=== PATIENT | female | born 1945 | race African-American/Black ===

== ENCOUNTER 2018-02-04 18:50 | Inpatient (IN) | payer MEDICARE ==
[~2018-02-04] VITALS: Ht 162.6 cm; Wt 56.7 kg
[~2018-02-04 18:50] MED LIST: AMLO2.5T45 PO; ASPI-1159 PO; CLOP75TA15 PO; GLIM1TAB2 PO; METF500T4 PO; PRALUENT PO
[2018-02-04] MEDS ORDERED: GUAIFENESIN 200MG/10ML SUGAR FREE UDC PO PRN (19:45)
[2018-02-04] MEDS ORDERED: CLONIDINE 0.1MG TABLET PO PRN (19:45)
[2018-02-04] MEDS ORDERED: DEXTROSE 50% WATER 50ML SYRINGE IV PRN (19:45)
[2018-02-04] MEDS ORDERED: ONDANSETRON HCL 4MG/2ML VIAL IV PRN (19:45)
[2018-02-04] MEDS ORDERED: MORPHINE SULFATE 4 MG/ML CPJ (NOT FOR IM USE) IV PRN ×4 (19:45→20:45)
[2018-02-04] MEDS ORDERED: IPRATROPIUM/ALBUTEROL 0.5-3(2.5)MG/3ML NEB HHN PRN (19:45)
[2018-02-04 20:00] VITALS: BP 112/48
[2018-02-04] MEDS: INSULIN LISPRO 100 UNITS/ML SUBCUT SCH (21:00)
[2018-02-04] MEDS: AMLODIPINE 2.5MG TABLET PO SCH (21:00)
[2018-02-04] MEDS: METOPROLOL TARTRATE 25MG TABLET PO SCH (21:00)
[2018-02-04] MEDS: DOCUSATE SODIUM 100MG CAPSULE PO PRN (21:02)
[2018-02-04] MEDS: BLOOD SUGAR DIAGNOSTIC STRIP TEST SCH (21:02)
[2018-02-04] MEDS ORDERED: LOSA25TA3 PO ×2 (21:56→21:59)
[2018-02-05] MEDS: HYDROCODONE/APAP 7.5/325MG 1 TAB TABLET PO PRN ×3 (03:24→22:27)
[2018-02-05] MEDS: GLIMEPIRIDE 1MG TABLET PO SCH (06:27)
[2018-02-05] MEDS: BLOOD SUGAR DIAGNOSTIC STRIP TEST SCH ×4 (06:27→20:52)
[2018-02-05] MEDS: INSULIN LISPRO 100 UNITS/ML SUBCUT SCH ×4 (06:27→20:52)
[2018-02-05 07:48] LABS: BASOPHILS % 0.6 % (0.0-2.0); EOSINOPHILS % 2.1 % (0.0-5.0); HEMATOCRIT. 27.5 % (36.0-48.0); HEMOGLOBIN. 9.2 g/dL (12.0-16.0); LYMPHOCYTES % 18.5 % (20.0-50.0); MEAN CORPUSCULAR HEMOGLOBIN 29.9 pg (28.0-32.0); MEAN CORPUSCULAR VOLUME 89.6 fL (81.0-99.0); MEAN PLATELET VOLUME 8.3 fl (7.4-10.4); MONOCYTES % 10.6 % (2.0-8.0); NEUTROPHILS % 68.2 % (40.0-76.0); PLATELET 218 x1000/uL (130-400); RED BLOOD CELL COUNT 3.07 mill/uL (4.2-5.4); RED CELL DISTRIBUTION WIDTH 13.4 % (11.6-14.6)
[2018-02-05 08:00] VITALS: BP 126/50
[2018-02-05] MEDS: METFORMIN HCL 500MG TABLET PO SCH ×2 (08:07→17:00)
[2018-02-05] MEDS: ASPIRIN 81MG EC TABLET PO SCH (08:07)
[2018-02-05] MEDS: POLYVINYL ALCOHOL OPHTH DROPS 15ML BOTHEYE SCH ×3 (08:08→18:15)
[2018-02-05] MEDS: AMLODIPINE 2.5MG TABLET PO SCH ×2 (08:10→20:55)
[2018-02-05] MEDS: METOPROLOL TARTRATE 25MG TABLET PO SCH (08:18)
[2018-02-05 08:19] LABS: CHLORIDE 102 mEq/L (98-107)
[2018-02-05] MEDS: LOSARTAN POTASSIUM 25 MG TABLET PO SCH (11:00)
[2018-02-05] MEDS ORDERED: LOSARTAN POTASSIUM 25 MG TABLET PO PRN (11:00)
[2018-02-05] MEDS: LEVOFLOXACIN 250MG TABLET PO SCH (12:31)
[2018-02-05] MEDS: DOCUSATE SODIUM 100MG CAPSULE PO PRN (12:31)
[2018-02-05] MEDS: LACTULOSE 20G/30ML UDC PO PRN (18:56)
[2018-02-05] MEDS ORDERED: NON FORMULARY PATIENT HOME MED EA XX SCH (19:00)
[2018-02-05 20:00] VITALS: BP 136/44
[2018-02-05] MEDS: CLOPIDOGREL 75MG TABLET PO SCH (20:54)
[2018-02-05] MEDS ORDERED: POLYVINYL ALCOHOL OPHTH DROPS 15ML OP SCH (22:00)
[2018-02-05] MEDS: SYSTANE LUBRICANT EYE DROPS OP SCH (22:17)
[2018-02-06] MEDS: BLOOD SUGAR DIAGNOSTIC STRIP TEST SCH ×4 (06:13→21:00)
[2018-02-06] MEDS: SYSTANE LUBRICANT EYE DROPS OP SCH ×3 (06:14→22:24)
[2018-02-06] MEDS: GLIMEPIRIDE 1MG TABLET PO SCH (07:00)
[2018-02-06 08:00] VITALS: BP 121/61
[2018-02-06] MEDS: CLOPIDOGREL 75MG TABLET PO SCH (08:26)
[2018-02-06] MEDS: METFORMIN HCL 500MG TABLET PO SCH ×2 (08:26→17:45)
[2018-02-06] MEDS: ASPIRIN 81MG EC TABLET PO SCH (08:26)
[2018-02-06] MEDS: LOSARTAN POTASSIUM 25 MG TABLET PO SCH (08:26)
[2018-02-06] MEDS: HYDROCODONE/APAP 7.5/325MG 1 TAB TABLET PO PRN ×3 (08:27→22:56)
[2018-02-06] MEDS: INSULIN LISPRO 100 UNITS/ML SUBCUT SCH ×4 (08:32→21:00)
[2018-02-06] MEDS: AMLODIPINE 2.5MG TABLET PO SCH ×2 (08:32→21:00)
[2018-02-06] MEDS: LEVOFLOXACIN 250MG TABLET PO SCH (11:59)
[2018-02-06 20:00] VITALS: BP 129/51
[2018-02-07] MEDS: SYSTANE LUBRICANT EYE DROPS OP SCH ×3 (06:46→21:51)
[2018-02-07] MEDS: BLOOD SUGAR DIAGNOSTIC STRIP TEST SCH ×4 (06:46→21:49)
[2018-02-07 08:00] VITALS: BP 156/60
[2018-02-07] MEDS: ASPIRIN 81MG EC TABLET PO SCH (08:23)
[2018-02-07] MEDS: CLOPIDOGREL 75MG TABLET PO SCH (08:23)
[2018-02-07] MEDS: METFORMIN HCL 500MG TABLET PO SCH ×3 (08:23→17:24)
[2018-02-07] MEDS: AMLODIPINE 2.5MG TABLET PO SCH ×3 (08:23→21:53)
[2018-02-07] MEDS: LOSARTAN POTASSIUM 25 MG TABLET PO SCH (08:24)
[2018-02-07] MEDS: HYDROCODONE/APAP 7.5/325MG 1 TAB TABLET PO PRN ×2 (08:25→13:58)
[2018-02-07] MEDS: INSULIN LISPRO 100 UNITS/ML SUBCUT SCH ×4 (08:32→21:00)
[2018-02-07] MEDS: LEVOFLOXACIN 250MG TABLET PO SCH (12:01)
[2018-02-07] MEDS: GLIMEPIRIDE 1MG TABLET PO SCH (12:42)
[2018-02-07] MEDS: DOCUSATE SODIUM 100MG CAPSULE PO PRN (17:24)
[2018-02-07 20:00] VITALS: BP 141/62
[2018-02-07] MEDS ORDERED: NA PHOS,M-B/NA PHOS,DI-BA ENEMA 118ML PR PRN (20:15)
[2018-02-08] MEDS: BLOOD SUGAR DIAGNOSTIC STRIP TEST SCH ×4 (06:04→21:00)
[2018-02-08] MEDS: GLIMEPIRIDE 1MG TABLET PO SCH (06:16)
[2018-02-08] MEDS: HYDROCODONE/APAP 7.5/325MG 1 TAB TABLET PO PRN ×3 (06:17→16:34)
[2018-02-08] MEDS: INSULIN LISPRO 100 UNITS/ML SUBCUT SCH ×4 (06:22→21:00)
[2018-02-08] MEDS: SYSTANE LUBRICANT EYE DROPS OP SCH ×3 (06:23→21:03)
[2018-02-08] MEDS: METFORMIN HCL 500MG TABLET PO SCH ×3 (09:00→16:51)
[2018-02-08] MEDS: AMLODIPINE 2.5MG TABLET PO SCH ×2 (09:00→20:56)
[2018-02-08] MEDS: LOSARTAN POTASSIUM 25 MG TABLET PO SCH (09:00)
[2018-02-08] MEDS: CLOPIDOGREL 75MG TABLET PO SCH (11:01)
[2018-02-08] MEDS: ASPIRIN 81MG EC TABLET PO SCH (11:05)
[2018-02-08] MEDS: LEVOFLOXACIN 250MG TABLET PO SCH (12:11)
[2018-02-08 20:00] VITALS: BP 109/44
[2018-02-09] MEDS: HYDROCODONE/APAP 7.5/325MG 1 TAB TABLET PO PRN ×4 (03:39→23:24)
[2018-02-09 06:36] LABS: BASOPHILS % 0.8 % (0.0-2.0); EOSINOPHILS % 1.8 % (0.0-5.0); HEMATOCRIT. 26.7 % (36.0-48.0); HEMOGLOBIN. 8.9 g/dL (12.0-16.0); LYMPHOCYTES % 23.5 % (20.0-50.0); MEAN CORPUSCULAR HEMOGLOBIN 29.9 pg (28.0-32.0); MEAN CORPUSCULAR VOLUME 89.1 fL (81.0-99.0); MEAN PLATELET VOLUME 7.8 fl (7.4-10.4); MONOCYTES % 8.6 % (2.0-8.0); NEUTROPHILS % 65.3 % (40.0-76.0); PLATELET 325 x1000/uL (130-400); RED CELL DISTRIBUTION WIDTH 13.6 % (11.6-14.6)
[2018-02-09] MEDS: BLOOD SUGAR DIAGNOSTIC STRIP TEST SCH ×4 (06:36→21:00)
[2018-02-09] MEDS: SYSTANE LUBRICANT EYE DROPS OP SCH ×3 (06:36→22:54)
[2018-02-09] MEDS: INSULIN LISPRO 100 UNITS/ML SUBCUT SCH ×4 (06:39→22:48)
[2018-02-09] MEDS: GLIMEPIRIDE 1MG TABLET PO SCH (07:30)
[2018-02-09 07:39] LABS: CHLORIDE 105 mEq/L (98-107)
[2018-02-09 08:00] VITALS: BP 121/54
[2018-02-09] MEDS: CLOPIDOGREL 75MG TABLET PO SCH (08:27)
[2018-02-09] MEDS: AMLODIPINE 2.5MG TABLET PO SCH ×2 (08:28→21:55)
[2018-02-09] MEDS: ASPIRIN 81MG EC TABLET PO SCH (08:29)
[2018-02-09] MEDS: METFORMIN HCL 500MG TABLET PO SCH ×2 (08:37→17:49)
[2018-02-09] MEDS: LOSARTAN POTASSIUM 25 MG TABLET PO SCH (08:37)
[2018-02-09] MEDS: LEVOFLOXACIN 250MG TABLET PO SCH (11:40)
[2018-02-09 20:00] VITALS: BP 167/55
[2018-02-10] MEDS: SYSTANE LUBRICANT EYE DROPS OP SCH ×3 (06:14→22:33)
[2018-02-10] MEDS: BLOOD SUGAR DIAGNOSTIC STRIP TEST SCH ×4 (06:14→20:06)
[2018-02-10] MEDS: HYDROCODONE/APAP 7.5/325MG 1 TAB TABLET PO PRN ×4 (06:30→20:23)
[2018-02-10 08:00] VITALS: BP 129/88
[2018-02-10] MEDS: LOSARTAN POTASSIUM 25 MG TABLET PO SCH (08:03)
[2018-02-10] MEDS: GLIMEPIRIDE 1MG TABLET PO SCH (08:03)
[2018-02-10] MEDS: ASPIRIN 81MG EC TABLET PO SCH (08:03)
[2018-02-10] MEDS: CLOPIDOGREL 75MG TABLET PO SCH (08:04)
[2018-02-10] MEDS: METFORMIN HCL 500MG TABLET PO SCH ×3 (08:04→18:00)
[2018-02-10] MEDS: AMLODIPINE 2.5MG TABLET PO SCH ×2 (08:05→20:06)
[2018-02-10] MEDS: DOCUSATE SODIUM 100MG CAPSULE PO PRN (08:07)
[2018-02-10] MEDS: INSULIN LISPRO 100 UNITS/ML SUBCUT SCH ×4 (08:07→20:06)
[2018-02-10] MEDS: LEVOFLOXACIN 250MG TABLET PO SCH (11:51)
[2018-02-10] MEDS ORDERED: MORPHINE SULFATE 4 MG/ML CPJ (NOT FOR IM USE) IV PRN (12:45)
[2018-02-10 20:00] VITALS: BP 121/43
[2018-02-11] MEDS: HYDROCODONE/APAP 7.5/325MG 1 TAB TABLET PO PRN ×3 (01:12→21:25)
[2018-02-11] MEDS: INSULIN LISPRO 100 UNITS/ML SUBCUT SCH ×4 (05:52→21:00)
[2018-02-11] MEDS: BLOOD SUGAR DIAGNOSTIC STRIP TEST SCH ×4 (05:52→21:16)
[2018-02-11] MEDS: SYSTANE LUBRICANT EYE DROPS OP SCH ×3 (05:52→21:26)
[2018-02-11] MEDS: DOCUSATE SODIUM 100MG CAPSULE PO PRN (06:04)
[2018-02-11] MEDS: GLIMEPIRIDE 1MG TABLET PO SCH (07:42)
[2018-02-11 08:00] VITALS: BP 105/53
[2018-02-11] MEDS: LOSARTAN POTASSIUM 25 MG TABLET PO SCH (08:08)
[2018-02-11] MEDS: AMLODIPINE 2.5MG TABLET PO SCH ×2 (08:08→21:00)
[2018-02-11] MEDS: ASPIRIN 81MG EC TABLET PO SCH (08:23)
[2018-02-11] MEDS: METFORMIN HCL 500MG TABLET PO SCH ×2 (08:23→17:04)
[2018-02-11] MEDS: CLOPIDOGREL 75MG TABLET PO SCH (08:23)
[2018-02-11] MEDS: LEVOFLOXACIN 250MG TABLET PO SCH (11:15)
[2018-02-11] MEDS: OXYCODONE HCL/ACETAMINOPHEN 5/325MG TABLET PO PRN (11:18)
[2018-02-11] MEDS: LACTULOSE 20G/30ML UDC PO PRN (17:04)
[2018-02-11] MEDS: DOCUSATE SODIUM 100MG CAPSULE PO SCH (17:04)
[2018-02-11 20:00] VITALS: BP 121/70
[2018-02-12] MEDS: BLOOD SUGAR DIAGNOSTIC STRIP TEST SCH ×4 (06:18→20:40)
[2018-02-12] MEDS: INSULIN LISPRO 100 UNITS/ML SUBCUT SCH ×4 (06:19→20:40)
[2018-02-12] MEDS: SYSTANE LUBRICANT EYE DROPS OP SCH ×3 (06:19→21:27)
[2018-02-12 08:36] VITALS: BP 118/49
[2018-02-12] MEDS: GLIMEPIRIDE 1MG TABLET PO SCH (08:43)
[2018-02-12] MEDS: DOCUSATE SODIUM 100MG CAPSULE PO SCH ×2 (08:44→17:32)
[2018-02-12] MEDS: CLOPIDOGREL 75MG TABLET PO SCH (08:45)
[2018-02-12] MEDS: METFORMIN HCL 500MG TABLET PO SCH ×2 (08:45→17:32)
[2018-02-12] MEDS: AMLODIPINE 2.5MG TABLET PO SCH ×2 (09:00→20:40)
[2018-02-12] MEDS: LOSARTAN POTASSIUM 25 MG TABLET PO SCH (09:00)
[2018-02-12] MEDS: ASPIRIN 81MG EC TABLET PO SCH (10:07)
[2018-02-12] MEDS: HYDROCODONE/APAP 7.5/325MG 1 TAB TABLET PO PRN (10:11)
[2018-02-12 11:30] VITALS: BP 75/43
[2018-02-12 11:35] VITALS: BP 95/46
[2018-02-12 12:08] VITALS: BP 118/57
[2018-02-12] MEDS: OXYCODONE HCL/ACETAMINOPHEN 5/325MG TABLET PO PRN (17:44)
[2018-02-12 20:00] VITALS: BP_SYST 123; BP_SYST 77; BP_SYST 94; BP_DIAS 35; BP_DIAS 41; BP_DIAS 56
[2018-02-13] MEDS: OXYCODONE HCL/ACETAMINOPHEN 5/325MG TABLET PO PRN ×2 (00:03→14:33)
[2018-02-13] MEDS: SYSTANE LUBRICANT EYE DROPS OP SCH ×3 (06:22→22:00)
[2018-02-13] MEDS: INSULIN LISPRO 100 UNITS/ML SUBCUT SCH ×4 (06:25→21:52)
[2018-02-13] MEDS: BLOOD SUGAR DIAGNOSTIC STRIP TEST SCH ×4 (06:25→21:41)
[2018-02-13 08:25] VITALS: BP 130/63
[2018-02-13] MEDS: CLOPIDOGREL 75MG TABLET PO SCH (08:49)
[2018-02-13] MEDS: DOCUSATE SODIUM 100MG CAPSULE PO SCH ×2 (08:49→17:25)
[2018-02-13] MEDS: METFORMIN HCL 500MG TABLET PO SCH ×2 (08:49→17:00)
[2018-02-13] MEDS: LOSARTAN POTASSIUM 25 MG TABLET PO SCH (08:49)
[2018-02-13] MEDS: ASPIRIN 81MG EC TABLET PO SCH (08:49)
[2018-02-13] MEDS: AMLODIPINE 2.5MG TABLET PO SCH ×2 (08:50→21:51)
[2018-02-13] MEDS: GLIMEPIRIDE 1MG TABLET PO SCH (08:50)
[2018-02-13] MEDS: ACETAMINOPHEN 325MG TABLET PO PRN (12:40)
[2018-02-13 20:00] VITALS: BP_SYST 143; BP_SYST 166; BP_SYST 97; BP_DIAS 59; BP_DIAS 60; BP_DIAS 64
[2018-02-14] MEDS: BLOOD SUGAR DIAGNOSTIC STRIP TEST SCH ×4 (05:48→21:52)
[2018-02-14] MEDS: SYSTANE LUBRICANT EYE DROPS OP SCH ×3 (05:50→22:04)
[2018-02-14] MEDS: OXYCODONE HCL/ACETAMINOPHEN 5/325MG TABLET PO PRN ×3 (06:04→20:06)
[2018-02-14] MEDS: GLIMEPIRIDE 1MG TABLET PO SCH (06:04)
[2018-02-14 07:45] VITALS: BP 133/66
[2018-02-14 09:00] VITALS: BP_SYST 112; BP_SYST 97; BP_DIAS 42; BP_DIAS 57
[2018-02-14] MEDS: INSULIN LISPRO 100 UNITS/ML SUBCUT SCH ×4 (09:00→22:02)
[2018-02-14] MEDS: AMLODIPINE 2.5MG TABLET PO SCH ×2 (09:00→21:00)
[2018-02-14] MEDS: DOCUSATE SODIUM 100MG CAPSULE PO SCH ×2 (09:18→17:21)
[2018-02-14] MEDS: ASPIRIN 81MG EC TABLET PO SCH (09:18)
[2018-02-14] MEDS: CLOPIDOGREL 75MG TABLET PO SCH (09:18)
[2018-02-14] MEDS: METFORMIN HCL 500MG TABLET PO SCH ×2 (09:18→17:21)
[2018-02-14] MEDS: LOSARTAN POTASSIUM 25 MG TABLET PO SCH (09:19)
[2018-02-14] MEDS: LIDOCAINE 5% PATCH TOP SCH (15:58)
[2018-02-14 20:00] VITALS: BP 128/64
[2018-02-14] MEDS: LACTULOSE 20G/30ML UDC PO PRN (21:54)
[2018-02-15] MEDS: OXYCODONE HCL/ACETAMINOPHEN 5/325MG TABLET PO PRN ×3 (04:07→21:47)
[2018-02-15] MEDS: GLIMEPIRIDE 1MG TABLET PO SCH ×2 (06:03→08:12)
[2018-02-15] MEDS: INSULIN LISPRO 100 UNITS/ML SUBCUT SCH ×4 (06:04→21:00)
[2018-02-15] MEDS: BLOOD SUGAR DIAGNOSTIC STRIP TEST SCH ×4 (06:04→21:48)
[2018-02-15] MEDS: SYSTANE LUBRICANT EYE DROPS OP SCH ×3 (06:04→22:00)
[2018-02-15 06:51] VITALS: BP_SYST 109; BP_SYST 128; BP_DIAS 60
[2018-02-15 08:00] VITALS: BP 106/50
[2018-02-15] MEDS: CLOPIDOGREL 75MG TABLET PO SCH (08:12)
[2018-02-15] MEDS: ASPIRIN 81MG EC TABLET PO SCH (08:12)
[2018-02-15] MEDS: DOCUSATE SODIUM 100MG CAPSULE PO SCH ×2 (08:13→17:36)
[2018-02-15] MEDS: AMLODIPINE 2.5MG TABLET PO SCH ×3 (08:13→21:47)
[2018-02-15] MEDS: METFORMIN HCL 500MG TABLET PO SCH ×2 (08:18→17:36)
[2018-02-15] MEDS: LIDOCAINE 5% PATCH TOP SCH (08:18)
[2018-02-15] MEDS: LOSARTAN POTASSIUM 25 MG TABLET PO SCH (09:00)
[2018-02-15 20:00] VITALS: BP_SYST 117; BP_SYST 139; BP_DIAS 62; BP_DIAS 63
[2018-02-15] MEDS ORDERED: ONDANSETRON 4MG ODT PO PRN (22:45)
[2018-02-16] MEDS: SYSTANE LUBRICANT EYE DROPS OP SCH ×3 (05:41→22:00)
[2018-02-16] MEDS: BLOOD SUGAR DIAGNOSTIC STRIP TEST SCH ×4 (05:41→21:00)
[2018-02-16] MEDS: OXYCODONE HCL/ACETAMINOPHEN 5/325MG TABLET PO PRN ×3 (05:55→22:50)
[2018-02-16 08:00] VITALS: BP 97/55
[2018-02-16] MEDS: INSULIN LISPRO 100 UNITS/ML SUBCUT SCH ×4 (09:00→21:00)
[2018-02-16] MEDS: AMLODIPINE 2.5MG TABLET PO SCH ×2 (09:00→21:00)
[2018-02-16] MEDS: LIDOCAINE 5% PATCH TOP SCH ×2 (09:00→09:09)
[2018-02-16] MEDS: LOSARTAN POTASSIUM 25 MG TABLET PO SCH (09:00)
[2018-02-16] MEDS: CLOPIDOGREL 75MG TABLET PO SCH (09:07)
[2018-02-16] MEDS: METFORMIN HCL 500MG TABLET PO SCH ×2 (09:07→17:46)
[2018-02-16] MEDS: DOCUSATE SODIUM 100MG CAPSULE PO SCH ×2 (09:08→17:46)
[2018-02-16] MEDS: ASPIRIN 81MG EC TABLET PO SCH (09:08)
[2018-02-16 10:27] VITALS: BP 136/61
[2018-02-16 20:00] VITALS: BP_SYST 115; BP_SYST 88; BP_DIAS 41; BP_DIAS 45
[2018-02-17] MEDS: INSULIN LISPRO 100 UNITS/ML SUBCUT SCH ×4 (06:24→21:30)
[2018-02-17] MEDS: BLOOD SUGAR DIAGNOSTIC STRIP TEST SCH ×4 (06:24→21:26)
[2018-02-17] MEDS ORDERED: LACTULOSE 20G/30ML UDC PO NR (06:30)
[2018-02-17] MEDS: SYSTANE LUBRICANT EYE DROPS OP SCH ×3 (06:39→21:28)
[2018-02-17] MEDS: ACETAMINOPHEN 325MG TABLET PO PRN (06:43)
[2018-02-17] MEDS: GLIMEPIRIDE 1MG TABLET PO SCH (07:00)
[2018-02-17 08:24] VITALS: BP 137/60
[2018-02-17] MEDS: AMLODIPINE 2.5MG TABLET PO SCH ×2 (09:00→21:27)
[2018-02-17] MEDS: LIDOCAINE 5% PATCH TOP SCH (09:00)
[2018-02-17] MEDS: METFORMIN HCL 500MG TABLET PO SCH ×2 (09:00→17:46)
[2018-02-17] MEDS: ASPIRIN 81MG EC TABLET PO SCH (09:00)
[2018-02-17] MEDS: DOCUSATE SODIUM 100MG CAPSULE PO SCH ×2 (09:07→17:00)
[2018-02-17] MEDS: LOSARTAN POTASSIUM 25 MG TABLET PO SCH (09:16)
[2018-02-17] MEDS: CLOPIDOGREL 75MG TABLET PO SCH (09:16)
[2018-02-17 20:00] VITALS: BP_SYST 132; BP_SYST 147; BP_DIAS 58; BP_DIAS 64
[2018-02-17] MEDS: OXYCODONE HCL/ACETAMINOPHEN 5/325MG TABLET PO PRN (21:27)
[2018-02-18] MEDS: BLOOD SUGAR DIAGNOSTIC STRIP TEST SCH ×4 (06:14→20:32)
[2018-02-18] MEDS: GLIMEPIRIDE 1MG TABLET PO SCH (06:45)
[2018-02-18] MEDS: OXYCODONE HCL/ACETAMINOPHEN 5/325MG TABLET PO PRN ×3 (06:47→20:50)
[2018-02-18] MEDS: INSULIN LISPRO 100 UNITS/ML SUBCUT SCH ×4 (06:48→20:32)
[2018-02-18] MEDS: SYSTANE LUBRICANT EYE DROPS OP SCH ×3 (06:48→20:55)
[2018-02-18 08:00] VITALS: BP 96/48
[2018-02-18] MEDS: DOCUSATE SODIUM 100MG CAPSULE PO SCH ×2 (08:53→18:29)
[2018-02-18] MEDS: METFORMIN HCL 500MG TABLET PO SCH ×2 (08:53→18:29)
[2018-02-18] MEDS: ASPIRIN 81MG EC TABLET PO SCH (08:53)
[2018-02-18] MEDS: CLOPIDOGREL 75MG TABLET PO SCH (08:53)
[2018-02-18] MEDS: LIDOCAINE 5% PATCH TOP SCH ×2 (08:55→08:58)
[2018-02-18] MEDS: LOSARTAN POTASSIUM 25 MG TABLET PO SCH (08:55)
[2018-02-18] MEDS: AMLODIPINE 2.5MG TABLET PO SCH ×2 (08:56→20:49)
[2018-02-18 12:40] VITALS: BP 165/75
[2018-02-18 20:00] VITALS: BP_SYST 126; BP_SYST 133; BP_SYST 147; BP_DIAS 57; BP_DIAS 60; BP_DIAS 61
[2018-02-19] MEDS: SYSTANE LUBRICANT EYE DROPS OP SCH (05:55)
[2018-02-19] MEDS: OXYCODONE HCL/ACETAMINOPHEN 5/325MG TABLET PO PRN ×2 (05:59→11:52)
[2018-02-19 06:00] VITALS: BP 127/52
[2018-02-19] MEDS: BLOOD SUGAR DIAGNOSTIC STRIP TEST SCH ×2 (06:15→11:15)
[2018-02-19 08:00] VITALS: BP_SYST 125; BP_SYST 128; BP_SYST 137; BP_DIAS 61; BP_DIAS 62; BP_DIAS 63
[2018-02-19] MEDS: AMLODIPINE 2.5MG TABLET PO SCH (08:41)
[2018-02-19] MEDS: DOCUSATE SODIUM 100MG CAPSULE PO SCH (08:41)
[2018-02-19] MEDS: CLOPIDOGREL 75MG TABLET PO SCH (08:41)
[2018-02-19] MEDS: ASPIRIN 81MG EC TABLET PO SCH (08:41)
[2018-02-19] MEDS: LOSARTAN POTASSIUM 25 MG TABLET PO SCH (08:42)
[2018-02-19] MEDS: INSULIN LISPRO 100 UNITS/ML SUBCUT SCH (08:42)
[2018-02-19] MEDS: GLIMEPIRIDE 1MG TABLET PO SCH (08:42)
[2018-02-19] MEDS: METFORMIN HCL 500MG TABLET PO SCH (08:42)
[2018-02-19] MEDS: LIDOCAINE 5% PATCH TOP SCH (08:42)
[2018-02-19 10:59] VITALS: BP 137/63
[2018-02-19 11:52] VITALS: BP 128/71
== END 2018-02-19 11:55 | disposition home health service (06) | DRG 535 ==
PROVIDERS: ADMIT Psychiatry & Neurology Neurology; ATTEND Hospitalist
DX: S32.592A Other specified fracture of left pubis, initial encounter for closed fracture (principal); E43 Unspecified severe protein-calorie malnutrition; E11.22 Type 2 diabetes mellitus with diabetic chronic kidney disease; E11.51 Type 2 diabetes mellitus with diabetic peripheral angiopathy without gangrene; D64.9 Anemia, unspecified; E86.0 Dehydration; N39.0 Urinary tract infection, site not specified; I13.10 Hypertensive heart and chronic kidney disease without heart failure, with stage 1 through stage 4 chronic kidney disease, or unspecified chronic kidney disease; N18.9 Chronic kidney disease, unspecified; I25.10 Atherosclerotic heart disease of native coronary artery without angina pectoris; R26.9 Unspecified abnormalities of gait and mobility; M19.012 Primary osteoarthritis, left shoulder; M79.609 Pain in unspecified limb; K59.00 Constipation, unspecified; F06.31 Mood disorder due to known physiological condition with depressive features; R53.81 Other malaise; Z68.21 Body mass index [BMI] 21.0-21.9, adult; Z79.82 Long term (current) use of aspirin; Z79.899 Other long term (current) drug therapy; Z79.02 Long term (current) use of antithrombotics/antiplatelets; Z79.4 Long term (current) use of insulin; Z87.891 Personal history of nicotine dependence; W18.39XA Other fall on same level, initial encounter; Y93.01 Activity, walking, marching and hiking; Y92.092 Bedroom in other non-institutional residence as the place of occurrence of the external cause; Y99.8 Other external cause status
CPT/HCPCS: 36415; 72131; 73030; 80048; 80053; 82962; 83735; 85025; 93005; 93970; 97110; 97116; 97163; 97167; 97530; 97535; C1893; J1815; J2270; J2405

== ENCOUNTER 2019-04-08 08:44 | Inpatient (IN) | payer MEDICARE, BC ==
[~2019-04-08] VITALS: Ht 162.6 cm; Wt 60.8 kg
[~2019-04-08 08:44] MED LIST changes: -AMLO2.5T45 PO; -ASPI-1159 PO; +ASPI-1393 PO; +LOSA25TA3 PO; +METF-414 PO; -METF500T4 PO
[2019-04-08] MEDS ORDERED: ALBUTEROL (0.083%) 2.5MG/3ML NEB HHN STA (09:24)
[2019-04-08] MEDS ORDERED: ASPIRIN 81MG TABLET PO ONE (09:30)
[2019-04-08 10:16] LABS: CHLORIDE 106 mEq/L (98-107)
[2019-04-08] MEDS ORDERED: FUROSEMIDE 40MG/4ML VIAL IVP ONE (10:30)
[2019-04-08] MEDS ORDERED: HYDROCODONE/ACETAMINOPHEN 5/325MG TABLET PO PRN (11:30)
[2019-04-08] MEDS ORDERED: MORPHINE SULFATE 2 MG/ML CPJ (NOT FOR IM USE) IV PRN (11:30)
[2019-04-08] MEDS ORDERED: CLONIDINE 0.1MG TABLET PO PRN (11:30)
[2019-04-08] MEDS ORDERED: ACETAMINOPHEN 325MG TABLET PO PRN (11:30)
[2019-04-08] MEDS ORDERED: MAGNESIUM/ALUMINUM HYDROXIDE/SIMETHICONE 30ML UDC PO PRN (11:30)
[2019-04-08] MEDS ORDERED: ONDANSETRON HCL 4MG/2ML INJ IV PRN (11:30)
[2019-04-08 11:56] LABS: BASOPHILS % 0.8 % (0.0-2.0); EOSINOPHILS % 1.4 % (0.0-5.0); HEMATOCRIT. 31.6 % (36.0-48.0); HEMOGLOBIN. 10.2 g/dL (12.0-16.0); LYMPHOCYTES % 26.5 % (20.0-50.0); MEAN CORPUSCULAR HEMOGLOBIN 29.3 pg (28.0-32.0); MEAN CORPUSCULAR VOLUME 90.9 fL (81.0-99.0); MEAN PLATELET VOLUME 9.3 fl (7.4-10.4); MONOCYTES % 7.6 % (2.0-8.0); NEUTROPHILS % 63.7 % (40.0-76.0); PLATELET 246 x1000/uL (130-400); RED BLOOD CELL COUNT 3.47 mill/uL (4.2-5.4); RED CELL DISTRIBUTION WIDTH 14.4 % (11.6-14.6)
[2019-04-08 12:00] VITALS: BP 118/54
[2019-04-08] MEDS ORDERED: DILTIAZEM HCL 5MG/ML 5ML VIAL IV NR (12:30)
[2019-04-08 13:55] VITALS: BP 118/54
[2019-04-08] MEDS ORDERED: ENOXAPARIN 30MG/0.3ML SYR SUBCUT SCH (14:00)
[2019-04-08] MEDS: LOSARTAN POTASSIUM 25 MG TABLET PO SCH (15:45)
[2019-04-08] MEDS: METOPROLOL TARTRATE 25MG TABLET PO SCH ×2 (15:54→21:00)
[2019-04-08 16:00] VITALS: BP 93/46
[2019-04-08] MEDS: ENOXAPARIN 40MG/0.4ML SYR SUBCUT SCH (17:11)
[2019-04-08] MEDS: FUROSEMIDE 40MG/4ML VIAL IVP SCH (17:12)
[2019-04-08 17:23] LABS: CREATINE KINASE MB FRACTION 4.3 ng/mL (0.5-3.6)
[2019-04-08] MEDS: DILTIAZEM HCL 60MG TABLET PO SCH (18:00)
[2019-04-08 20:00] VITALS: BP 90/45
[2019-04-08 23:00] LABS: VITAMIN B12 SERUM 1891 pg/mL (211-911)
[2019-04-09] VITALS: BP 108/58
[2019-04-09 04:00] VITALS: BP 103/54
[2019-04-09] MEDS: DILTIAZEM HCL 60MG TABLET PO SCH ×4 (05:55→18:06)
[2019-04-09 06:20] LABS: BASOPHILS % 0.7 % (0.0-2.0); EOSINOPHILS % 1.9 % (0.0-5.0); HEMOGLOBIN. 8.9 g/dL (12.0-16.0); LYMPHOCYTES % 29.1 % (20.0-50.0); MEAN CORPUSCULAR HEMOGLOBIN 29.9 pg (28.0-32.0); MEAN CORPUSCULAR VOLUME 90.4 fL (81.0-99.0); MEAN PLATELET VOLUME 9.5 fl (7.4-10.4); MONOCYTES % 12.3 % (2.0-8.0); PLATELET 210 x1000/uL (130-400); RED BLOOD CELL COUNT 2.99 mill/uL (4.2-5.4); RED CELL DISTRIBUTION WIDTH 14.4 % (11.6-14.6)
[2019-04-09 06:27] LABS: CHLORIDE 103 mEq/L (98-107)
[2019-04-09 06:39] LABS: LDL CHOLESTEROL 62 mg/dL (5-100)
[2019-04-09 06:43] LABS: CREATINE KINASE MB FRACTION 3.4 ng/mL (0.5-3.6)
[2019-04-09 06:44] LABS: CREATINE KINASE 184 IU/L (26-192); HDL CHOLESTEROL 59 mg/dL (40-59); TOTAL IRON BINDING CAPACITY 344 ug/dL (250-450)
[2019-04-09] MEDS ORDERED: DEXTROSE 50% WATER 50ML SYRINGE IV PRN (07:45)
[2019-04-09 08:00] VITALS: BP 114/63
[2019-04-09] MEDS ORDERED: FUROSEMIDE 40MG/4ML VIAL IV SCH (09:00)
[2019-04-09] MEDS: FUROSEMIDE 40MG/4ML VIAL IVP SCH ×2 (09:27→18:07)
[2019-04-09] MEDS: METOPROLOL TARTRATE 25MG TABLET PO SCH (09:28)
[2019-04-09] MEDS: LOSARTAN POTASSIUM 25 MG TABLET PO SCH (09:28)
[2019-04-09] MEDS: ENOXAPARIN 40MG/0.4ML SYR SUBCUT SCH ×2 (09:28→22:22)
[2019-04-09] MEDS: ASPIRIN 81MG EC TABLET PO SCH (09:29)
[2019-04-09] MEDS: CLOPIDOGREL 75MG TABLET PO SCH (10:07)
[2019-04-09] MEDS: BLOOD SUGAR DIAGNOSTIC STRIP TEST SCH ×3 (11:56→21:00)
[2019-04-09 12:00] VITALS: BP 154/64
[2019-04-09] MEDS ORDERED: FERROUS SULFATE 325MG TABLET PO SCH (12:15)
[2019-04-09] MEDS: INSULIN LISPRO 100 UNITS/ML SUBCUT SCH ×3 (12:22→22:23)
[2019-04-09 12:35] LABS: PHOSPHORUS 4.3 mg/dL (2.5-4.9)
[2019-04-09] MEDS ORDERED: LACTULOSE 20G/30ML UDC PO PRN (12:45)
[2019-04-09 16:00] VITALS: BP 124/50
[2019-04-09] MEDS: DOCUSATE SODIUM 100MG CAPSULE PO SCH ×2 (17:00→18:07)
[2019-04-09 20:00] VITALS: BP 105/49
[2019-04-09] MEDS: ACETYLCYSTEINE 200MG/ML 20% VIAL 4ML PO SCH (23:33)
[2019-04-10] VITALS: BP 113/53
[2019-04-10 00:28] LABS: CLARITY URINE CLEAR (CLEAR); COLOR URINE YELLOW (YELLOW); KETONES URINE NEGATIVE (NEGATIVE); LEUKOCYTE ESTERASE URINE 1+ (NEGATIVE); NITRITE URINE NEGATIVE (NEGATIVE); OCCULT BLOOD URINE NEGATIVE (NEGATIVE); PROTEIN URINE NEGATIVE (NEGATIVE); SPECIFIC GRAVITY URINE 1.006 (1.005-1.030); UROBILINOGEN URINE 0.2 E.U./dL (0.2-1.0)
[2019-04-10 04:00] VITALS: BP 93/45
[2019-04-10] MEDS: BLOOD SUGAR DIAGNOSTIC STRIP TEST SCH ×4 (05:38→20:03)
[2019-04-10] MEDS: DILTIAZEM HCL 60MG TABLET PO SCH ×5 (05:38→23:39)
[2019-04-10] MEDS: INSULIN LISPRO 100 UNITS/ML SUBCUT SCH ×5 (05:38→23:48)
[2019-04-10 06:01] LABS: BASOPHILS % 0.5 % (0.0-2.0); EOSINOPHILS % 1.8 % (0.0-5.0); HEMATOCRIT. 27.9 % (36.0-48.0); HEMOGLOBIN. 9.3 g/dL (12.0-16.0); LYMPHOCYTES % 23.2 % (20.0-50.0); MEAN CORPUSCULAR HEMOGLOBIN 29.8 pg (28.0-32.0); MEAN CORPUSCULAR VOLUME 89.1 fL (81.0-99.0); MEAN PLATELET VOLUME 9.2 fl (7.4-10.4); MONOCYTES % 9.6 % (2.0-8.0); NEUTROPHILS % 64.9 % (40.0-76.0); PLATELET 235 x1000/uL (130-400); RED BLOOD CELL COUNT 3.13 mill/uL (4.2-5.4)
[2019-04-10 06:48] LABS: CHLORIDE 104 mEq/L (98-107)
[2019-04-10 08:00] VITALS: BP 116/54
[2019-04-10] MEDS: DOCUSATE SODIUM 100MG CAPSULE PO SCH ×4 (09:00→17:00)
[2019-04-10] MEDS: ASPIRIN 81MG EC TABLET PO SCH (09:16)
[2019-04-10] MEDS: POTASSIUM CHLORIDE 20MEQ TABLET SR PO SCH (09:16)
[2019-04-10] MEDS: CLOPIDOGREL 75MG TABLET PO SCH (09:16)
[2019-04-10] MEDS: FUROSEMIDE 40MG/4ML VIAL IVP SCH ×2 (09:17→18:52)
[2019-04-10] MEDS: ENOXAPARIN 40MG/0.4ML SYR SUBCUT SCH ×2 (09:17→20:02)
[2019-04-10 12:00] VITALS: BP 121/60
[2019-04-10] MEDS ORDERED: SODIUM CHLORIDE 0.45% 1,000 ML IV SCH ×2 (13:00→23:00)
[2019-04-10] MEDS: IRON SUCROSE COMPLEX 100 MG/5 ML ML IV SCH (13:06)
[2019-04-10] MEDS: ACETYLCYSTEINE 200MG/ML 20% VIAL 4ML PO SCH (13:32)
[2019-04-10 16:00] VITALS: BP 108/51
[2019-04-10 20:00] VITALS: BP 134/53
[2019-04-11] VITALS (69 sets, daily range): BP systolic 73–153; BP diastolic 25–95
[2019-04-11] MEDS ORDERED: ZOLPIDEM TARTRATE 5MG TABLET PO PRN (04:15)
[2019-04-11] MEDS: DILTIAZEM HCL 60MG TABLET PO SCH ×2 (04:24→12:45)
[2019-04-11] MEDS: BLOOD SUGAR DIAGNOSTIC STRIP TEST SCH ×4 (04:24→21:44)
[2019-04-11] MEDS ORDERED: MIDAZOLAM HCL 2 MG/2 ML VIAL ONE (07:24)
[2019-04-11] MEDS ORDERED: FENTANYL CITRATE/PF 50MCG/ML 2ML VIAL ONE (07:25)
[2019-04-11] MEDS ORDERED: IODIXANOL 320MG/ML 100 ML BOTTLE IV ONE (07:25)
[2019-04-11] MEDS ORDERED: ASPIRIN/SOD BICARB/CITRIC ACID 324MG TAB EFF ONE (07:25)
[2019-04-11] MEDS ORDERED: LIDOCAINE HCL 1% 20ML VIAL (Pyxis) INJ ONE (07:26)
[2019-04-11 07:49] LABS: BASOPHILS % 0.7 % (0.0-2.0); EOSINOPHILS % 1.6 % (0.0-5.0); HEMATOCRIT. 28.7 % (36.0-48.0); HEMOGLOBIN. 9.5 g/dL (12.0-16.0); LYMPHOCYTES % 21.8 % (20.0-50.0); MEAN CORPUSCULAR HEMOGLOBIN 29.5 pg (28.0-32.0); MEAN CORPUSCULAR VOLUME 89.3 fL (81.0-99.0); MEAN PLATELET VOLUME 9.2 fl (7.4-10.4); MONOCYTES % 9.7 % (2.0-8.0); NEUTROPHILS % 66.2 % (40.0-76.0); PLATELET 251 x1000/uL (130-400); RED BLOOD CELL COUNT 3.22 mill/uL (4.2-5.4); RED CELL DISTRIBUTION WIDTH 14.2 % (11.6-14.6)
[2019-04-11 08:13] LABS: PHOSPHORUS 3.5 mg/dL (2.5-4.9)
[2019-04-11] MEDS ORDERED: ATROPINE SULFATE 0.1MG/ML 10ML DISP.SYRIN ONE (08:34)
[2019-04-11] MEDS: IRON SUCROSE COMPLEX 100 MG/5 ML ML IV SCH ×2 (09:00→10:48)
[2019-04-11 09:06] LABS: *CREATININE RANDOM URINE 13.8 mg/dL (Not Estab.); MICROALBUMIN RANDOM URINE 4.5 ug/mL (Not Estab.)
[2019-04-11] MEDS ORDERED: SODIUM CHLORIDE 0.45% 500 ML IV ONE (09:15)
[2019-04-11] MEDS ORDERED: ATROPINE SULFATE 1MG/10ML SYR IV PRN (09:15)
[2019-04-11] MEDS ORDERED: ONDANSETRON HCL 4MG/2ML INJ IV PRN (09:15)
[2019-04-11] MEDS ORDERED: ACETAMINOPHEN 325MG TABLET PO PRN (09:15)
[2019-04-11] MEDS ORDERED: MORPHINE SULFATE 2 MG/ML CPJ (NOT FOR IM USE) IV PRN (09:15)
[2019-04-11] MEDS ORDERED: LORAZEPAM 0.5MG TABLET PO ONE (10:15)
[2019-04-11] MEDS: FUROSEMIDE 40MG/4ML VIAL IVP SCH (10:48)
[2019-04-11] MEDS: POTASSIUM CHLORIDE 20MEQ TABLET SR PO SCH (10:48)
[2019-04-11] MEDS: DOCUSATE SODIUM 100MG CAPSULE PO SCH ×2 (10:48→17:00)
[2019-04-11] MEDS ORDERED: NITROGLYCERIN 50MCG/ML 10ML VIAL (CATH LAB) IV ONE (10:49)
[2019-04-11] MEDS ORDERED: NICARDIPINE 100MCG/ML 10ML VIAL (CATH LAB) IV ONE (10:49)
[2019-04-11] MEDS ORDERED: HEPARIN SODIUM 1,000 UNIT/1ML VIAL IV ONE (10:49)
[2019-04-11] MEDS ORDERED: PHENYLEPHRINE 100MCG/ML 10ML VIAL (CATH LAB) IV ONE (10:49)
[2019-04-11] MEDS ORDERED: DILTIAZEM HCL 5MG/ML 5ML VIAL IV PRN ×2 (11:15→11:30)
[2019-04-11] MEDS ORDERED: DILTIAZEM HCL 5MG/ML 5ML VIAL IV NR ×2 (11:15→11:45)
[2019-04-11] MEDS ORDERED: DILTIAZEM HCL 5MG/ML 5ML VIAL IV ONE (11:30)
[2019-04-11] MEDS ORDERED: LORAZEPAM 0.5MG TABLET PO NR (11:45)
[2019-04-11] MEDS: AMIODARONE HCL 200 MG TABLET PO SCH ×2 (11:45→21:07)
[2019-04-11] MEDS ORDERED: AMIODARONE HCL 150 MG in DEXT 5% WATER 100 ML IV NR (12:00)
[2019-04-11] MEDS: INSULIN LISPRO 100 UNITS/ML SUBCUT SCH ×3 (12:46→21:21)
[2019-04-11] MEDS ORDERED: PHENYLEPHRINE HCL 10 MG/ML 1ML (IV VIAL) IV ONE (15:54)
[2019-04-11] MEDS ORDERED: SODIUM CHLORIDE 0.9% 250 ML IV ONE (16:00)
[2019-04-11] MEDS ORDERED: PHENYLEPHRINE 10 MG in DEXT 5% WATER 249 ML IV PRN (16:15)
[2019-04-11] MEDS: DILTIAZEM HCL 30MG TABLET PO SCH (17:30)
[2019-04-11] MEDS: ENOXAPARIN 40MG/0.4ML SYR SUBCUT SCH ×3 (17:39→21:08)
[2019-04-11] MEDS: ASPIRIN 81MG EC TABLET PO SCH (17:42)
[2019-04-11] MEDS ORDERED: PHENYLEPHRINE 20 MG in DEXT 5% WATER 248 ML IV PRN (20:00)
[2019-04-12] VITALS (65 sets, daily range): BP systolic 86–156; BP diastolic 22–112
[2019-04-12 05:29] LABS: BASOPHILS % 0.8 % (0.0-2.0); EOSINOPHILS % 2.4 % (0.0-5.0); HEMATOCRIT. 29.4 % (36.0-48.0); HEMOGLOBIN. 9.5 g/dL (12.0-16.0); MEAN CORPUSCULAR HEMOGLOBIN 29.1 pg (28.0-32.0); MEAN CORPUSCULAR VOLUME 90.1 fL (81.0-99.0); MEAN PLATELET VOLUME 9.2 fl (7.4-10.4); MONOCYTES % 9.9 % (2.0-8.0); NEUTROPHILS % 60.9 % (40.0-76.0); PLATELET 246 x1000/uL (130-400); RED BLOOD CELL COUNT 3.26 mill/uL (4.2-5.4); RED CELL DISTRIBUTION WIDTH 14.4 % (11.6-14.6)
[2019-04-12] MEDS: DILTIAZEM HCL 30MG TABLET PO SCH ×3 (05:40→13:00)
[2019-04-12] MEDS: INSULIN LISPRO 100 UNITS/ML SUBCUT SCH ×2 (08:20→13:02)
[2019-04-12] MEDS: BLOOD SUGAR DIAGNOSTIC STRIP TEST SCH ×2 (08:29→12:47)
[2019-04-12] MEDS: AMIODARONE HCL 200 MG TABLET PO SCH (08:43)
[2019-04-12] MEDS: IRON SUCROSE COMPLEX 100 MG/5 ML ML IV SCH (08:43)
[2019-04-12] MEDS: DOCUSATE SODIUM 100MG CAPSULE PO SCH (09:00)
[2019-04-12] MEDS: ASPIRIN 81MG EC TABLET PO SCH (09:14)
[2019-04-12] MEDS: ENOXAPARIN 40MG/0.4ML SYR SUBCUT SCH (09:15)
[2019-04-12] MEDS ORDERED: LORAZEPAM 0.5MG TABLET PO PRN (09:30)
== END 2019-04-12 15:58 | disposition short-term general hospital (02) | DRG 281 ==
LOC: ER 09:51 → EDBEDREQ 11:11 → SUPCPDRO 11:17 → ENRESERV 12:03 → 5WST 13:19 → CVICU 04-11 09:12
PROVIDERS: ADMIT Hospitalist; ATTEND Hospitalist
PROC: 4A023N7 Measurement of Cardiac Sampling and Pressure, Left Heart, Percutaneous Approach (ICD-10-PCS; principal; 2019-04-08)
PROC: B2111ZZ Fluoroscopy of Multiple Coronary Arteries using Low Osmolar Contrast (ICD-10-PCS; 2019-04-11)
DX: I21.4 Non-ST elevation (NSTEMI) myocardial infarction (principal); I13.0 Hypertensive heart and chronic kidney disease with heart failure and stage 1 through stage 4 chronic kidney disease, or unspecified chronic kidney disease; N17.9 Acute kidney failure, unspecified; E11.22 Type 2 diabetes mellitus with diabetic chronic kidney disease; E11.65 Type 2 diabetes mellitus with hyperglycemia; I50.9 Heart failure, unspecified; D50.9 Iron deficiency anemia, unspecified; N18.2 Chronic kidney disease, stage 2 (mild); I70.209 Unspecified atherosclerosis of native arteries of extremities, unspecified extremity; I48.0 Paroxysmal atrial fibrillation; I25.10 Atherosclerotic heart disease of native coronary artery without angina pectoris; E11.51 Type 2 diabetes mellitus with diabetic peripheral angiopathy without gangrene; F32.9 Major depressive disorder, single episode, unspecified; I34.0 Nonrheumatic mitral (valve) insufficiency; E78.5 Hyperlipidemia, unspecified; I95.9 Hypotension, unspecified; Z87.891 Personal history of nicotine dependence; Z95.5 Presence of coronary angioplasty implant and graft; Z87.81 Personal history of (healed) traumatic fracture; Z79.4 Long term (current) use of insulin; Z79.82 Long term (current) use of aspirin; Z95.1 Presence of aortocoronary bypass graft; Z82.49 Family history of ischemic heart disease and other diseases of the circulatory system; Z79.899 Other long term (current) drug therapy; Z95.820 Peripheral vascular angioplasty status with implants and grafts
CPT/HCPCS: 36415; 71045; 71250; 76770; 80048; 80061; 80076; 82043; 82270; 82550; 82553; 82570; 82607; 82962; 83540; 83550; 83735; 83880; 84100; 84443; 84484; 85044; 85379; 93005; 93306; 93455; 93880; 93923; 93970; 99285; C1769; C1893; J0282; J0461; J1644; J1650; J1815; J1940; J2250; J2370; J3010; J3490; J7050; J7060; J7608; J7611; Q9967